=== PATIENT | female | born 1940 | race Caucasian/White ===

== ENCOUNTER 2018-08-16 12:52 | Emergency (ER) | payer OTHER ==
[~2018-08-16] VITALS: Ht 157.5 cm; Wt 55.1 kg
[2018-08-16 12:56] VITALS: BP 134/67; Ht 157.5 cm; Wt 55.1 kg
== END 2018-08-16 13:34 | disposition home or self-care (01) ==
LOC: ED 12:52
DX: L03.113 Cellulitis of right upper limb (principal); G56.00 Carpal tunnel syndrome, unspecified upper limb; I10 Essential (primary) hypertension; I48.91 Unspecified atrial fibrillation; Z88.0 Allergy status to penicillin; Z90.49 Acquired absence of other specified parts of digestive tract

== ENCOUNTER 2019-04-07 06:59 | Inpatient (IN) | payer OTHER ==
[~2019-04-07] VITALS: Ht 157.5 cm; Wt 58.1 kg
[2019-04-07 07:13] VITALS: BP 139/92
[2019-04-07 11:26] LABS: BASOPHIL % 0.3 % (0-2); PLATELET COUNT 196 x10^3mcL (130-400); RED CELL DISTRIBUTION WIDTH 13.3 % (11.5-14.5)
[2019-04-07 11:49] LABS: ALKALINE PHOSPHATASE 130 U/L (46-116); ALT/SGPT 171 U/L (14-59); AST/SGOT 217 U/L (15-37); BILIRUBIN TOTAL 0.61 mg/dL (0.20-1.00); CALCIUM 8.5 mg/dL (8.5-10.1); CARBON DIOXIDE 29.4 mmol/L (21-32); CHLORIDE SERUM 104 mmol/L (98-107); CREATININE SERUM 0.9 mg/dL (0.6-1.0); GLUCOSE SERUM 117 mg/dL (74-106); POTASSIUM SERUM 3.6 mmol/L (3.5-5.1); SODIUM SERUM 139 mmol/L (136-145)
[2019-04-07 11:51] LABS: ALBUMIN 2.9 g/dL (3.4-5.0); TOTAL PROTEIN, SERUM 6.1 g/dL (6.4-8.2)
[2019-04-07 13:43] VITALS: BP 121/60
[2019-04-07 18:02] VITALS: BP 133/60
[2019-04-07 19:10] VITALS: BP 139/79
[2019-04-08 03:33] VITALS: BP 145/79
[2019-04-08 06:35] VITALS: BP 133/73
[2019-04-08 07:05] LABS: PLATELET COUNT 192 x10^3mcL (130-400); RED CELL DISTRIBUTION WIDTH 13.4 % (11.5-14.5)
[2019-04-08 07:09] LABS: BASOPHIL % 0 % (0-2)
[2019-04-08 07:10] LABS: ALKALINE PHOSPHATASE 111 U/L (46-116); ALT/SGPT 173 U/L (14-59); AST/SGOT 133 U/L (15-37); BILIRUBIN TOTAL 0.63 mg/dL (0.20-1.00); CALCIUM 8.2 mg/dL (8.5-10.1); CARBON DIOXIDE 29.2 mmol/L (21-32); CHLORIDE SERUM 101 mmol/L (98-107); CREATININE SERUM 0.7 mg/dL (0.6-1.0); GLUCOSE SERUM 129 mg/dL (74-106); POTASSIUM SERUM 3.1 mmol/L (3.5-5.1); SODIUM SERUM 140 mmol/L (136-145); TOTAL PROTEIN, SERUM 6.5 g/dL (6.4-8.2)
[2019-04-08 07:43] VITALS: BP 152/87
[2019-04-08 08:34] LABS: ALBUMIN 2.9 g/dL (3.4-5.0)
[2019-04-08 08:35] LABS: LIPASE 11807 IU/L (73-393)
[2019-04-08 12:57] VITALS: BP 154/85
[2019-04-08 17:07] VITALS: BP 160/83
[2019-04-08 20:47] VITALS: BP 152/80
[2019-04-09 05:23] VITALS: BP 165/95
[2019-04-09 06:40] LABS: ALKALINE PHOSPHATASE 100 U/L (46-116); ALT/SGPT 108 U/L (14-59); AST/SGOT 74 U/L (15-37); BILIRUBIN TOTAL 0.7 mg/dL (0.20-1.00); CARBON DIOXIDE 33.4 mmol/L (21-32); CHLORIDE SERUM 99 mmol/L (98-107); CREATININE SERUM 0.6 mg/dL (0.6-1.0); GLUCOSE SERUM 106 mg/dL (74-106); LIPASE 969 IU/L (73-393); POTASSIUM SERUM 3.2 mmol/L (3.5-5.1); SODIUM SERUM 138 mmol/L (136-145); TOTAL PROTEIN, SERUM 6.5 g/dL (6.4-8.2)
[2019-04-09 07:10] LABS: BASOPHIL % 0.1 % (0-2); PLATELET COUNT 182 x10^3mcL (130-400); RED CELL DISTRIBUTION WIDTH 12.8 % (11.5-14.5)
[2019-04-09 07:14] LABS: ALBUMIN 2.8 g/dL (3.4-5.0)
[2019-04-09 08:23] VITALS: BP 162/96
[2019-04-09 12:23] VITALS: BP 141/76
[2019-04-09 16:30] VITALS: BP 172/90
[2019-04-09] MEDS ORDERED: NIFEDIPINE ER30 M1 PO (16:46)
[2019-04-09] MEDS ORDERED: LISINOPRIL40 MG PO (16:46)
[2019-04-09] MEDS ORDERED: ELIQUIS2.5 MG PO (16:47)
[2019-04-09] MEDS ORDERED: NEURONTIN100 MG PO (16:49)
[2019-04-09] MEDS ORDERED: GOOD SENSE OMEP20 MG PO (16:50)
[2019-04-09 19:13] VITALS: BP 144/86
[2019-04-09 20:34] VITALS: BP 150/90
[2019-04-10 05:10] VITALS: BP 146/85
[2019-04-10 07:13] LABS: BASOPHIL % 0.1 % (0-2); PLATELET COUNT 154 x10^3mcL (130-400)
[2019-04-10 07:43] LABS: ALKALINE PHOSPHATASE 99 U/L (46-116); ALT/SGPT 77 U/L (14-59); AST/SGOT 44 U/L (15-37); BILIRUBIN TOTAL 0.7 mg/dL (0.20-1.00); CALCIUM 8.1 mg/dL (8.5-10.1); CARBON DIOXIDE 31.4 mmol/L (21-32); CHLORIDE SERUM 98 mmol/L (98-107); CREATININE SERUM 0.5 mg/dL (0.6-1.0); GLUCOSE SERUM 94 mg/dL (74-106); SODIUM SERUM 136 mmol/L (136-145); TOTAL PROTEIN, SERUM 6.3 g/dL (6.4-8.2)
[2019-04-10 08:02] LABS: ALBUMIN 2.6 g/dL (3.4-5.0)
[2019-04-10 08:03] LABS: POTASSIUM SERUM 2.8 mmol/L (3.5-5.1)
[2019-04-10 08:32] VITALS: BP 148/84
[2019-04-10 12:37] VITALS: BP 140/83
[2019-04-10 16:56] VITALS: BP 161/77
[2019-04-10 20:39] VITALS: BP 155/84
[2019-04-11 05:06] VITALS: BP 142/86
[2019-04-11 07:04] LABS: PLATELET COUNT 190 x10^3mcL (130-400); RED CELL DISTRIBUTION WIDTH 12.6 % (11.5-14.5)
[2019-04-11 07:10] LABS: BASOPHIL % 0 % (0-2)
[2019-04-11 07:12] LABS: CALCIUM 8.8 mg/dL (8.5-10.1); CARBON DIOXIDE 30.7 mmol/L (21-32); CHLORIDE SERUM 99 mmol/L (98-107); CREATININE SERUM 0.6 mg/dL (0.6-1.0); GLUCOSE SERUM 107 mg/dL (74-106); POTASSIUM SERUM 3.9 mmol/L (3.5-5.1); SODIUM SERUM 135 mmol/L (136-145)
[2019-04-11 08:48] VITALS: BP 145/79
[2019-04-11 12:11] VITALS: BP 141/77
[2019-04-11 13:35] VITALS: BP 141/77
== END 2019-04-11 15:02 | disposition home or self-care (01) | DRG 393 ==
LOC: DS 06:59 → GI 08:00 → OR 09:00 → DU 09:44 → MU 09:44 → DU 17:26
PROVIDERS: Internal Medicine; Internal Medicine Pulmonary Disease; ADMIT Internal Medicine Pulmonary Disease
PROC: 0FC98ZZ Extirpation of Matter from Common Bile Duct, Via Natural or Artificial Opening Endoscopic (ICD-10-PCS; principal; 2019-04-07 08:00)
DX: K91.89 Other postprocedural complications and disorders of digestive system (principal); K83.1 Obstruction of bile duct; K59.00 Constipation, unspecified; I95.2 Hypotension due to drugs; R00.1 Bradycardia, unspecified; T40.2X5A Adverse effect of other opioids, initial encounter; I10 Essential (primary) hypertension; I48.91 Unspecified atrial fibrillation; Y92.238 Other place in hospital as the place of occurrence of the external cause
CPT/HCPCS: 43262; C1769; G0378; J1170; J1610; J1650; J1956; J2270; J2405; J2704; J3490; J7030; J7040; J7120; Q0092; Q9967